=== PATIENT | female | born 1995 | race Two or more races ===

== ENCOUNTER → 2024-08-05 13:17 | Outpatient (CLI) | payer OTHER | END | disposition home or self-care (01) | LOC: PRENATAL 13:17 | PROVIDERS: ATTEND Obstetrics & Gynecology Maternal & Fetal Medicine | DX: O36.80X0 Pregnancy with inconclusive fetal viability, not applicable or unspecified (principal); Z36.82 Encounter for antenatal screening for nuchal translucency; Z14.8 Genetic carrier of other disease; Z3A.14 14 weeks gestation of pregnancy ==

== ENCOUNTER 2024-09-16 15:22 | Outpatient (CLI) | payer OTHER | END 2024-09-16 15:24 | disposition home or self-care (01) | LOC: PRENATAL 15:22 | PROVIDERS: ATTEND Obstetrics & Gynecology Maternal & Fetal Medicine | DX: O44.00 Complete placenta previa NOS or without hemorrhage, unspecified trimester (principal); Z3A.20 20 weeks gestation of pregnancy ==

== ENCOUNTER 2024-12-07 15:00 | Outpatient (CLI) | payer OTHER | END 2024-12-07 15:02 | disposition home or self-care (01) | LOC: PRENATAL 15:00 | PROVIDERS: ATTEND Obstetrics & Gynecology Maternal & Fetal Medicine | DX: O26.849 Uterine size-date discrepancy, unspecified trimester (principal); O36.8199 Decreased fetal movements, unspecified trimester, other fetus; O99.019 Anemia complicating pregnancy, unspecified trimester; Z3A.32 32 weeks gestation of pregnancy ==

== ENCOUNTER 2025-01-25 17:44 | Inpatient (IN) | payer OTHER ==
[~2025-01-25] VITALS: Ht 172.7 cm; Wt 2.7 kg
[2025-01-25 17:14] VITALS: BP 128/70
[2025-01-25] MEDS ORDERED: PRENATABS RX T1 EACH PO (17:57)
[2025-01-25] MEDS ORDERED: RINGERS SOLUTION,LACTATED 1,000 ML IV SCH (18:15)
[2025-01-25 18:35] LABS: HEMATOCRIT 34.9 % (36.0-45.00); HEMOGLOBIN 11.7 g/dL (12.0-15.00); MEAN CELL VOLUME 84.9 fL (80.00-100.00); MEAN CORPUSCULAR HEMOGLOBIN 28.4 pg (27.00-32.0); MEAN CORPUSCULAR HGB CONC 33.5 g/dl (32.0-36.0); PLATELET COUNT 265 K/uL (150-450); RED BLOOD COUNT 4.11 M/uL (4.00-6.00); RED CELL DISTRIBUTION WIDTH 14.4 % (11.5-14.5)
[2025-01-25 18:35] LABS: URINE APPEARANCE Clear; URINE BILIRRUBIN Negative (NEGATIVE); URINE BLOOD Trace; URINE COLOR Yellow; URINE GLUCOSE Negative (NEGATIVE); URINE KETONE Negative (NEGATIVE); URINE LEUKOCYTE Negative; URINE NITRATE Negative; URINE PROTEIN Trace (NEGATIVE); URINE UROBILINOGEN 0.2 E.U./dl
[2025-01-25 18:38] LABS: URINE BACTERIA 187.2 uL (0.0-1933); URINE EPITHELIAL CELLS 17.7 uL (0.0-38.8); URINE WBC 5.2 uL (0.0-23.2)
[2025-01-25 18:40] LABS: URINE RBC 1.4 uL (0.0-20.8)
[2025-01-25 18:49] LABS: POTASSIUM 4.16 mEq/L (3.5-5.1)
[2025-01-25 19:04] LABS: ALBUMIN 2.8 gm/dL (3.4-5.0); BILIRUBIN TOTAL 0.22 mg/dL (0.3-1.2); CALCIUM 9.3 mg/dL (8.5-10.1); CREATININE SERUM 0.47 mg/dL (0.55-1.02); GFR 155.59; GLOBULINA 3.6 G/DL (2.4-3.5); TOTAL PROTEIN 6.4 gm/dL (6.4-8.2)
[2025-01-25 19:08] VITALS: BP 126/76
[2025-01-25 23:32] VITALS: BP 118/74
[2025-01-26 03:40] VITALS: BP 123/79
[2025-01-26] MEDS ORDERED: MORPHINE SULFATE 4 MG/ML CARTRIDGE IV ONE (04:15)
[2025-01-26 07:31] VITALS: BP 124/72
[2025-01-26] MEDS ORDERED: OXYTOCIN 500 ML IV SCH (08:30)
[2025-01-26] MEDS ORDERED: MORPHINE SULFATE 4 MG/ML VIAL IV ONE ×4 (08:30→18:15)
[2025-01-26 08:44] VITALS: BP 127/79
[2025-01-26] MEDS ORDERED: OXYTOCIN 20 UNITS/1000ML RL PIGGYBAG IV ONE (11:07)
[2025-01-26] MEDS ORDERED: ERYTHROMYCIN BASE OPHT 1GM EACH TUBE OP ONE ×2 (11:07→13:55)
[2025-01-26] MEDS ORDERED: CHLORHEXIDINE GLUCONATE 120 ML BOTTLE TOP ONE (11:08)
[2025-01-26] MEDS ORDERED: LIDOCAINE HCL 1% 10ML VIAL ONE (11:08)
[2025-01-26 12:21] VITALS: BP 131/73
[2025-01-26] MEDS ORDERED: OXYTOCIN 10 UNITS/ML VIAL ONE (13:55)
[2025-01-26] MEDS ORDERED: CEFAZOLIN SODIUM 1,000 MG VIAL ONE (14:46)
[2025-01-26] MEDS ORDERED: MEPERIDINE HCL/PF 50 MG/ML VIAL IM PRN (15:30)
[2025-01-26] MEDS ORDERED: PROMETHAZINE HCL 50 MG/ML AMPUL IM PRN (15:30)
[2025-01-26] MEDS ORDERED: MORPHINE SULFATE 4 MG/ML CARTRIDGE IV PRN ×2 (19:30→20:00)
[2025-01-26 20:02] VITALS: BP 127/71
[2025-01-27 02:03] VITALS: BP 116/69
[2025-01-27 04:00] VITALS: BP 117/67
[2025-01-27 06:50] LABS: HEMATOCRIT 31.3 % (36.0-45.00); HEMOGLOBIN 10.5 g/dL (12.0-15.00); MEAN CORPUSCULAR HEMOGLOBIN 28.9 pg (27.00-32.0); MEAN CORPUSCULAR HGB CONC 33.6 g/dl (32.0-36.0); PLATELET COUNT 244 K/uL (150-450); RED BLOOD COUNT 3.64 M/uL (4.00-6.00); RED CELL DISTRIBUTION WIDTH 14.1 % (11.5-14.5)
[2025-01-27] MEDS ORDERED: OxyCODONE HCL/APAP UD (PERCOCET) PO PRN (08:00)
[2025-01-27 08:53] VITALS: BP 115/73
[2025-01-27] MEDS ORDERED: SIMETHICONE 125 MG CAPSULE PO SCH (09:00)
[2025-01-27] MEDS ORDERED: PNV,CALCIUM 72/IRON/FOLIC ACID 1 TAB TABLET PO SCH (09:00)
[2025-01-27] MEDS ORDERED: DOCUSATE SODIUM 100MG CAP PO SCH (09:00)
[2025-01-27] MEDS ORDERED: ACETAMINOPHEN 325 MG TABLET PO PRN (09:15)
[2025-01-27] MEDS ORDERED: OxyCODONE HCL 5 MG TABLET (ROXICODONE) PO PRN (09:15)
[2025-01-27 16:00] VITALS: BP 117/69
[2025-01-28 00:15] VITALS: BP 122/73
[2025-01-28 08:15] VITALS: BP 126/88
== END 2025-01-28 12:04 | disposition home or self-care (01) | DRG 788 ==
LOC: LDR 17:44 → O/R 01-26 14:15 → OB/GYN 01-26 17:14
PROVIDERS: ADMIT Obstetrics & Gynecology; ATTEND Obstetrics & Gynecology
PROC: 4A1HXCZ Monitoring of Products of Conception, Cardiac Rate, External Approach (ICD-10-PCS; 2025-01-25)
PROC: 10D00Z1 Extraction of Products of Conception, Low, Open Approach (ICD-10-PCS; principal; 2025-01-26 14:00)
DX: O33.8 Maternal care for disproportion of other origin (principal); O69.81X0 Labor and delivery complicated by cord around neck, without compression, not applicable or unspecified; Z3A.39 39 weeks gestation of pregnancy; Z37.0 Single live birth